=== PATIENT | male | born 2005 | race Caucasian/White ===

== ENCOUNTER 2025-01-30 09:03 | Emergency (ER) | payer SELFPAY ==
[~2025-01-30] VITALS: Ht 182.9 cm; Wt 99.1 kg
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
[2025-01-30] MEDS ORDERED: IBUP1TAB5 PO (10:39)
[2025-01-30 10:50] VITALS: BP 115/77; PULSE 89; RESP 18; TEMP 98.7; O2SAT 98
== END 2025-01-30 11:05 | disposition home or self-care (01) ==
LOC: ER 09:03
DX: M25.511 Pain in right shoulder (principal); M54.50 Low back pain, unspecified; M79.604 Pain in right leg; M79.605 Pain in left leg; V89.2XXA Person injured in unspecified motor-vehicle accident, traffic, initial encounter; Y93.89 Activity, other specified; Y92.89 Other specified places as the place of occurrence of the external cause; Y99.8 Other external cause status